=== PATIENT | female | born 1980 | race Hispanic/Latino ===

== ENCOUNTER 2023-05-07 11:00 | Emergency (ER) | payer OTHER, SELFPAY ==
[2023-05-07] MEDS ORDERED: KETOROLAC 30 MG/ML INJ ONE (11:44)
[2023-05-07 11:54] LABS: Specific Gravity 1.013 (1.005-1.030)
[2023-05-07 11:58] LABS: Renal Epithelial <5 /HPF (None Seen); Specific Gravity 1.013 (1.005-1.030); Urine Bacteria <20 /HPF (<20); Urine Bilirubin NEGATIVE (Negative); Urine Blood Negative (Negative); Urine Clarity Turbid (Clear); Urine Color Light-Yellow (Yellow); Urine Glucose NEGATIVE (Negative); Urine Mucus Slight /HPF (None Seen); Urine Protein NEGATIVE (Negative); Urine RBC <5 /HPF (None Seen); Urine Urobilinogen Normal (Normal); Urine pH 5.5 (5.0-7.0)
--- NOTE | 2023-05-07 12:06 | ER ---
Nurse's Notes [facility] Name: Maricarmen Elliott Age: 43 yrs Sex: Female : 1980 Arrival Date: 05/07/2023 Time: 11:00 Bed 13 Private MD: Diagnosis: Low back strain Presentation: 05/07 11:20 Chief complaint: Patient states: Picked up an object a patient dropped on the floor ll1 04/24/23, and has had L lower back pain since. Pain has gotten worse, and now radiates around to L trunk/groin area. No fever or urinary symptoms. Coronavirus screen: Vaccine status: Patient reports being unvaccinated. Client denies travel out of the [place] in the last 14 days. At this time, the client does not indicate any symptoms associated with coronavirus-19. Ebola Screen: Patient denies travel to an Ebola-affected area in the 21 days before illness onset. Initial Sepsis Screen: Does the patient meet any 2 criteria? No. Patient's initial sepsis screen is negative. Does the patient have a suspected source of infection? Yes: Bone or joint infection. Risk Assessment: Do you want to hurt yourself or someone else? Patient reports no desire to harm self or others. Onset of symptoms was April 24, 2023. 11:20 Method Of Arrival: Ambulatory ll1 11:20 Acuity: SANYA 4 ll1 Triage Assessment: 11:22 General: Appears uncomfortable, Behavior is calm, cooperative, appropriate for age. ll1 Pain: Complains of pain in low back Quality of pain is described as aching. Musculoskeletal: Circulation, motion, and sensation intact. Capillary refill < 3 seconds, Reports pain in low back. Injury Description: strain. Historical: - Allergies: 11:19 No Known Allergies; ll1 - Home Meds: 11:19 None [Active]; ll1 - PMHx: 11:19 None; ll1 - PSHx: 11:19 section; Cholecystectomy; ll1 - Immunization history:: Client reports having NOT received the Covid vaccine. - Social history:: Smoking status: Patient denies any tobacco usage or history of. Screenin:[facility] ED Fall Risk Assessment (Adult) History of falling in the last 3 months, kc6 including since admission No falls in past 3 months (0 pts) Confusion or Disorientation No (0 pts) Intoxicated or Sedated No (0 pts) Impaired Gait No (0 pts) Mobility Assist Device Used No (0 pt) Altered Elimination No (0 pt) Score/Fall Risk Level 0 - 2 = Low Risk Oriented to surroundings, Maintained a safe environment, Educated pt \T\ family on fall prevention, incl call for assistance when getting out of bed, Assessed \T\ reinforced patient's understanding of fall precautions, Hourly rounding (assess needs \T\ fall precautionary measures) done. Abuse screen: Denies threats or abuse. Denies injuries from another. Nutritional screening: No deficits noted. Tuberculosis screening: No symptoms or risk factors identified. Assessment: 11:30 Reassessment: Patient appears in no apparent distress at this time. No changes from 6 previously documented assessment. Patient and/or family updated on plan of care and expected duration. Pain level reassessed. Patient is alert, oriented x 3, equal unlabored respirations, skin warm/dry/pink. Vital Signs: 11:20 BP 115 / 79; Pulse 73; Resp 17; Temp 98.6; Pulse Ox 99% on R/A; Weight 147.87 kg; ll1 Height 5 ft. 7 in. ; Pain 5/10; 11:45 Pain 5/10; nj1 11:20 Body Mass Index 51.06 (147.87 kg, 170.18 cm) ll1 11:20 Pain Scale: Adult ll1 11:45 Pain Scale: Adult hi1 ED Course: 11:10 Patient arrived in ED. ll1 11:11 Tootie Lisa RN is Primary Nurse. kc6 11:11 Nathalie Quiroz MD is Attending Physician. sp3 11:19 Arm band placed on Patient placed in an exam room, on a stretcher. ll1 11:21 Patient has correct armband on for positive identification. Bed in low position. Call kc6 light in reach. Side rails up X 1. Adult w/ patient. 11:22 Triage completed. ll1 11:45 Urine collected: clean catch specimen, clear. mb4 12:09 No provider procedures requiring assistance completed. Patient did not have IV access kc6 during this emergency room visit. Administered Medications: 11:45 Drug: Ketorolac IM 60 mg {Note: Dosage divided, given right and left gluteus.} Route: nj1 IM; Site: Other; 12:05 Follow up: Response: No adverse reaction; Pain is decreased kc6 Medication: 12:10 VIS not applicable for this client. kc6 Outcome: 12:05 Discharge ordered by . [email or web address] 12:10 Discharged to home ambulatory, with family, with significant other. kc6 12:10 Condition: improved 12:10 Discharge instructions given to patient, Instructed on discharge instructions, follow up and referral plans. medication usage, Demonstrated understanding of instructions, follow-up care, medications, Prescriptions given X 2. 12:10 Patient left the ED. kc6 Signatures: Yolette Mathis mb4 Josefa Casas RN RN ll1 Nathalie Quiroz MD MD sp3 Tootie Lisa RN RN kc6 Saima Salgado RN RN nj1 Corrections: (The following items were deleted from the chart) 12:00 11:54 Reassessment: No changes from previously documented assessment. kc6 kc6
--- NOTE | 2023-05-07 12:06 | EDPHYS ---
Physician Documentation [facility] Name: Maricarmen Elliott Age: 43 yrs Sex: Female : 1980 Arrival Date: 05/07/2023 Time: 11:00 Bed 13 Private MD: ED Physician Nathalie Quiroz HPI: 05/07 11:34 This 43 yrs old Female presents to ER via Ambulatory with complaints of Low sp3 Back Pain. 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 Patient states that when she lifted she felt a "pull" in her back and has had sharp episodic pains in her musculature since then. Injury occurred on 04/24/2023. She denies any abdominal pain, lightheadedness, syncope, chest pain, upper back pain, numbness or tingling in her lower extremities, neurological dysfunction, loss of bowel or bladder control, or any other concerning findings on review of systems. Patient has tried p.o. Tylenol which is helped somewhat.. Historical: - Allergies: 11:19 No Known Allergies; ll1 - Home Meds: 11:19 None [Active]; ll1 - PMHx: 11:19 None; ll1 - PSHx: 11:19 section; Cholecystectomy; ll1 - Immunization history:: Client reports having NOT received the Covid vaccine. - Social history:: Smoking status: Patient denies any tobacco usage or history of. ROS: 11:35 Constitutional: Negative for fever, chills, and weight loss, Eyes: Negative for injury, sp3 pain, redness, and discharge, ENT: Negative for injury, pain, and discharge, Neck: Negative for injury, pain, and swelling, Cardiovascular: Negative for chest pain, palpitations, and edema, Respiratory: Negative for shortness of breath, cough, wheezing, and pleuritic chest pain, Abdomen/GI: Negative for abdominal pain, nausea, vomiting, diarrhea, and constipation, MS/Extremity: Negative for injury and deformity, Skin: Negative for injury, rash, and discoloration, Neuro: Negative for headache, weakness, numbness, tingling, and seizure, Psych: Negative for depression, anxiety, suicide ideation, homicidal ideation, and hallucinations, Allergy/Immunology: Negative for hives, rash, and allergies, Endocrine: Negative for neck swelling, polydipsia, polyuria, polyphagia, and marked weight changes. 11:35 All other systems are negative. Exam: 11:35 Constitutional: This is a well developed, well nourished patient who is awake, alert, sp3 and in no acute distress. Head/Face: Normocephalic, atraumatic. Eyes: Pupils equal round and reactive to light, extra-ocular motions intact. Lids and lashes normal. Conjunctiva and sclera are non-icteric and not injected. Cornea within normal limits. Periorbital areas with no swelling, redness, or edema. Neck: Trachea midline, no thyromegaly or masses palpated, and no cervical lymphadenopathy. Supple, full range of motion without nuchal rigidity, or vertebral point tenderness. No Meningismus. Chest/axilla: Normal chest wall appearance and motion. Nontender with no deformity. No lesions are appreciated. Cardiovascular: Regular rate and rhythm with a normal S1 and S2. No gallops, murmurs, or rubs. Normal PMI, no JVD. No pulse deficits. Respiratory: Lungs have equal breath sounds bilaterally, clear to auscultation and percussion. No rales, rhonchi or wheezes noted. No increased work of breathing, no retractions or nasal flaring. Abdomen/GI: Soft, non-tender, with normal bowel sounds. No distension or tympany. No guarding or rebound. No evidence of tenderness throughout. Skin: Warm, dry with normal turgor. Normal color with no rashes, no lesions, and no evidence of cellulitis. MS/ Extremity: Pulses equal, no cyanosis. Neurovascular intact. Full, normal range of motion. Neuro: Awake and alert, GCS 15, oriented to person, place, time, and situation. Cranial nerves II-XII grossly intact. Motor strength 5/5 in all extremities. Sensory grossly intact. Cerebellar exam normal. Normal gait. Psych: Awake, alert, with orientation to person, place and time. Behavior, mood, and affect are within normal limits. 11:35 Back: Mild tenderness to palpation on lower back. No bony tenderness. Neurological exam is normal.. Vital Signs: 11:20 BP 115 / 79; Pulse 73; Resp 17; Temp 98.6; Pulse Ox 99% on R/A; Weight 147.87 kg; ll1 Height 5 ft. 7 in. ; Pain 5/10; 11:45 Pain 5/10; nj1 11:20 Body Mass Index 51.06 (147.87 kg, 170.18 cm) ll1 11:20 Pain Scale: Adult ll1 11:45 Pain Scale: Adult nj1 MDM: 11:19 Patient medically screened. snw 11:36 Data reviewed: vital signs, nurses notes, lab test result(s). ED course: 43-year-old sp3 female with no PMH now presents with low back pain likely secondary to MSK injury while lifting. Will obtain urinalysis to assess for any urological pathology as per patient request. 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 Symptoms likely MSK in origin. We will administer ketorolac 60 mg IM and discharged on p.o. meds if urine is negative.. 12:04 ED course: UA is normal. Patient feels better after pain medication. Will discharge sp3 patient home on muscle relaxer and p.o. NSAID with PCP follow-up as needed.. 05/07 11:31 Order name: UAM; Complete Time: 12:04 sp3 05/07 11:31 Order name: Test, Urine; Complete Time: 12:04 sp3 Administered Medications: 11:45 Drug: Ketorolac IM 60 mg {Note: Dosage divided, given right and left gluteus.} Route: nj1 IM; Site: Other; 12:05 Follow up: Response: No adverse reaction; Pain is decreased kc6 Disposition Summary: 05/07/23 12:05 Discharge Ordered Location: Home sp3 Condition: Stable sp3 Diagnosis - Low back strain sp3 Followup: sp3 - With: Private Physician - When: Upon discharge from the Emergency Department - Reason: If symptoms return Discharge Instructions: - Discharge Summary Sheet sp3 - Acute Back Pain, Adult sp3 Forms: - Medication Reconciliation Form sp3 - Thank You Letter sp3 - Antibiotic Education sp3 - Prescription Opioid Use sp3 - Patient Portal [email or web address] sp3 Prescriptions: - Diclofenac Sodium 75 mg Oral Tablet Sustained Release - take 1 tablet by ORAL route 2 times per day; 30 tablet; Refills: 0, Product sp3 Selection Permitted - Cyclobenzaprine 5 mg Oral Tablet - take 1 tablet by ORAL route 3 times per day As needed; 15 tablet; Refills: 0, sp3 Product Selection Permitted Signatures: Dispatcher [employer] Reema Adan FNP-C FNP-Josefa Nickerson, RN RN ll1 Nathalie Quiroz MD MD sp3 Saima Salgado RN RN nj1 Tootie Lisa RN kc6
[2023-05-07 12:19] VITALS: BP 115/79; TEMP 98.6; O2SAT 99
== END 2023-05-07 12:10 | disposition home or self-care (01) ==
LOC: ER 11:00
DX: S39.012A Strain of muscle, fascia and tendon of lower back, initial encounter (principal)
CPT/HCPCS: 81001; 81025